=== PATIENT | female | born 1990 ===

== ENCOUNTER 2022-11-30 09:19 | Outpatient (CLI) | payer OTHER | END 2022-11-30 11:21 | disposition home or self-care (01) | LOC: PRENATAL 09:19 | PROVIDERS: ATTEND Obstetrics & Gynecology Maternal & Fetal Medicine | DX: O35.9XX0 Maternal care for (suspected) fetal abnormality and damage, unspecified, not applicable or unspecified (principal); O35.3XX0 Maternal care for (suspected) damage to fetus from viral disease in mother, not applicable or unspecified; Z3A.26 26 weeks gestation of pregnancy ==

== ENCOUNTER 2023-01-26 09:24 | Outpatient (CLI) | payer OTHER | END 2023-01-26 10:42 | disposition home or self-care (01) | LOC: PRENATAL 09:24 | PROVIDERS: ATTEND Obstetrics & Gynecology Maternal & Fetal Medicine | DX: O26.849 Uterine size-date discrepancy, unspecified trimester (principal); O36.8199 Decreased fetal movements, unspecified trimester, other fetus; O35.9XX0 Maternal care for (suspected) fetal abnormality and damage, unspecified, not applicable or unspecified; Z3A.34 34 weeks gestation of pregnancy ==